=== PATIENT | male | born 1945 | race Caucasian/White ===

== ENCOUNTER 2019-07-21 12:10 | Observation (INO) | payer MEDICARE, SELFPAY ==
[2019-07-21] VITALS (16 sets, daily range): BP systolic 119–160; BP diastolic 63–78; PULSE 76–113; RESP 14–20; TEMP 36.5–36.9; O2SAT 96–99; BMI 23.6
--- NOTE | 2019-07-21 12:41 | W.ED.EPISTAX ---
HPI - Epistaxis General: Chief complaint: Epistaxis Stated complaint: BLOODY NOSE Time Seen by Provider: 07/21/19 12:35 Source: patient Mode of arrival: ambulatory Limitations: no limitations History of Present Illness: HPI Narrative: 73-year-old male who states he has had episodic nosebleeds for last 2 days. Patient states that he had a nosebleed this morning and went to [facility] and was sent here. Patient's nosebleed is since stopped. He is not on any blood thinners. He denies any injuries or pain. MD complaint: epistaxis Location: left nostril Onset (ago): hour(s) Associated symptoms: Deny fever(s), headache(s) or vomiting Review of Systems Const: Denies: fever, chills, body aches or change in appetite Eyes: Denies: blurry vision or eye discomfort ENMT: Reports: nose bleeds Card: Denies: chest pain Resp: Denies: shortness of breath GI: Denies: abdominal pain, nausea, vomiting or diarrhea : Denies: painful urination Musc: Denies: neck pain or back pain Skin/Breast: Denies: rash Neuro: Denies: headache Psych: Denies: depression Chente/Lymph: Denies: easy bruising All/Imm: Denies: hives PFSH ED PFSH: Social History Smoking and tobacco status: never smoked Physical Exam Const: COMMON NORMALS: no apparent distress, oriented x3 and healthy appearing HENMT: COMMON NORMALS: normocephalic and head/scalp atraumatic HEAD & SCALP: normocephalic and atraumatic OTHER: dried blood to left nare Eye: COMMON NORMALS: PERRL and EOMs intact bilaterally PUPIL: Yes PERRL Neck/C-Spine: COMMON NORMALS: full ROM and supple Chest: COMMONS NORMALS: inspection of chest normal and palpation of chest normal Resp: COMMON NORMALS: normal respiratory effort, no retractions, no use of accessory muscles and clear to auscultation bilaterally AUSCULTATION: clear to auscultation bilaterally Cardio: COMMON NORMALS: regular rate, regular rhythm and no murmurs RATE: regular rate RHYTHM: regular rhythm GI: COMMON NORMALS: normal to inspection, nondistended, normoactive bowel sounds, soft to palpation, non-tender and no masses PALPATION: Yes soft Extremity: COMMON NORMALS: normal to inspection and full ROM Neuro: COMMON NORMALS: oriented x3, moves all extremities and no focal motor deficits Psych: COMMON NORMALS: mental status grossly normal, thought process normal and cooperative THOUGHT PROCESS: normal thought process Skin: COMMON NORMALS: no rashes or lesions noted and no wounds GENERAL SKIN EXAM: no rashes or lesions noted Course Vital Signs: Vital signs: Vital Signs Temperature 98.3 F 07/21/19 12:26 Pulse Rate 106 H 07/21/19 12:26 Respiratory Rate 18 07/21/19 12:26 Blood Pressure 126/66 07/21/19 12:26 Pulse Oximetry 98 07/21/19 12:26 MDM - Epistaxis MDM Narrative: Medical decision making narrative: Patient presents here with nosebleed likely causing anemia. Patient's hemoglobin here is 7.6 and last one saw was around 11. Will admit to trend hemoglobin and will transfuse. Lab Data: Labs: Lab Results 07/21/19 Range/Units 12:15 WBC 9.9 (4.0-10.0) 10^3/ uL RBC 2.60 L (4.1-5.3) 10^6/u L Hgb 7.6 L (11.7-16.6) g/dL Hct 24.8 L (42.0-52.0) % MCV 95.4 H (80-94) fL MCH 29.2 (28.0-34.0) pg MCHC 30.6 (30.0-36.0) g/dL RDW 18.0 H (12.1-15.1) % Plt Count 125 L (130-400) 10^3/c mm MPV 9.9 (7.4-10.4) fL Nucleated RBC % (a uto) 0 % Total Counted 100 (0-100) Atypical Lymphs % 2.0 (0-5) % Segmented Neutroph ils 42 % Absolute Lymphocyt es 5.0 H (1.2-3.4) 10^3/c mm Lymphocytes (Manua l) 49 % Monocytes (Manual) 2.0 % Absolute Monocytes 0.2 (0.1-0.6) 10^3/c mm Eosinophils (Manua l) 5 % Absolute Eosinophi ls 0.4 (0.0-0.7) 10^3/c mm Nucleated RBCs # 0.0 /100WBC Platelet Estimate Decreased (Normal) Discharge Plan Discharge Patient Disposition: Admitted As Inpatient Clinical Impression: Epistaxis Anemia Qualifiers: Anemia type: unspecified type Qualified Code(s): D64.9 - Anemia, unspecified Condition: Stable Referrals: Orlando Nevarez FNP [Family Provider] - Coding Level of Care Code ED Oracle Manager for Chg Fwd Exam Comprehensive
[2019-07-21 12:49] LABS: Hematocrit 24.8 % (42.0-52.0); Hemoglobin 7.6 g/dL (11.7-16.6); Mean Corpuscular HGB Conc 30.6 g/dL (30.0-36.0); Mean Corpuscular Hemoglobin 29.2 pg (28.0-34.0); Mean Corpuscular Volume 95.4 fL (80-94); Mean Platelet Volume 9.9 fL (7.4-10.4); Nucleated Red Blood Cells % 0 %; Platelet Count 125 10^3/cmm (130-400); White Blood Count 9.9 10^3/uL (4.0-10.0)
[2019-07-21 13:19] LABS: Slide Review Slide Review Perform
[2019-07-21 13:21] LABS: Total Cells Counted 100 (0-100)
[2019-07-21 13:25] LABS: Absolute Eosinophils 0.4 10^3/cmm (0.0-0.7); Absolute Segmented Neutrophil 4.1 10/cmm (1.6-7.1); Eosinophils 5 %; Lymphocytes 49 %; Monocytes Absolute 0.2 10^3/cmm (0.1-0.6); Platelet Estimate Decreased (Normal); Segmented Neutrophils 42 %
--- NOTE | 2019-07-21 16:30 | P.HP_ITS ---
Providers/Chief Complaint Admitting Physician: Dustin Hardy MD Primary Care Provider: Orlando Nevarez Chief Complaint: EPISTAXIS,ANEMIA History of Present Illness Johann Schuler is a 73 year old male with no significant past medical history presented to the ER today with complaining of feeling weak. Patient also endorsed having epistaxis ongoing for last 3 days. Patient stated till today morning epistaxis was intermittent, he thought it was bilateral associated with of spitting of blood. Today morning epistaxis associated with clot so he presented to the ER. While in the ER patient did not have any further epistaxis. Patient denies of having any hematemesis, melena, constipation, hematochezia, bleeding from anywhere else, easy bruising, history of easy bruising, chest pain, headache, postnasal drip, nausea, vomiting, weakness, dizziness, palpitations, difficulty in breathing. In the ER patient was found to have a hemoglobin of 7.6 so 1 unit of PRBC was already ordered and hospitalist service was requested for admission. Review of Systems Const: Denies: fever, chills, body aches, change in appetite, malaise, night sweats, diaphoresis, change in sleep pattern, daytime sleepiness or snoring Eyes: Denies: change in vision, blurry vision, photophobia, eye discomfort or eye discharge ENMT: Denies: throat pain, enlarged tonsils, hoarseness, mouth pain, oral sores/lesions, dry mouth, tinnitus, nasal congestion or post nasal drip Card: Denies: chest pain, palpitations, irregular heart rhythm, edema, swelling of feet/ankles, lightheadedness, syncope, pre-syncope, shortness of breath on exertion, shortness of breath when lying down, leg pain with exertion or bluish discoloration of hands/feet Resp: Denies: shortness of breath, productive cough, non-productive cough, wheezing, stridor, pain on inspiration, change in phlegm color, coughing up blood or chest congestion GI: Denies: abdominal pain, nausea, vomiting, vomiting blood, coffee grounds in vomit, difficulty swallowing, heartburn/indigestion, diarrhea, constipation, bloating, cramping, change in bowel habits, painful bowel movements, blood in stool or black tarry stool : Denies: flank pain, difficulty urinating, painful urination, urinary frequency, urinary urgency, urinary hesitancy, urinary dribbling, difficulty starting urination, change in urine stream, nighttime urination or blood in urine Musc: Denies: neck pain, back pain, extremity pain, joint pain, joint swelling, redness, joint stiffness or limited range of motion Neuro: Denies: headache, numbness in extremities, weakness in extremities, changes in sensation, lack of coordination, difficulty walking, frequent falls, dizziness, vertigo, confusion, slurred speech, difficulty communicating thoughts or seizure-like activity Psych: Denies: anxiety, depression, mood swings, panic attacks, hopelessness or irritability Endo: Denies: excessive urination, excessive thirst, tired all the time, cold intolerance, excessive sweating, flushing or heat intolerance Chente/Lymph: Denies: easy bruising or easy bleeding All/Imm: Denies: tongue swelling, facial swelling or acute wheezing Medications/Allergies Home Medications Medication Instructions Recorded Confirmed Last Taken Type Vitamin C 1 tab PO DAILY 07/21/19 07/21/19 07/20/19 History acetaminophen [Tylenol Extra 1,000 mg PO Q8H PRN 07/21/19 07/21/19 07/21/19 03:00 History Strength] calcium carbonate-vitamin D3 1 tab PO DAILY 07/21/19 07/21/19 07/20/19 History [Calcium 500 + D] multivitamin [Multiple Vitamins] 1 tab PO DAILY 07/21/19 07/21/19 07/20/19 History Allergies Allergy/AdvReac Type Severity Reaction Status Date / Time aspirin Allergy ADR-Nausea Verified 07/21/19 12:31 PFSH Acute PFSH: Medical History (Updated 07/21/19 @ 16:34 by Dustin Hardy MD) BPH (benign prostatic hyperplasia) Hematuria Iron deficiency anemia Lumbar compression fracture Surgical History (Updated 07/21/19 @ 16:34 by Dustin Hardy MD) H/O inguinal hernia repair Family History (Updated 07/21/19 @ 16:35 by Dustin Hardy MD) Other CAD (coronary artery disease) Cancer Social History (Updated 07/21/19 @ 16:35 by Dustin Hardy MD) Smoking and tobacco status: never smoked Alcohol intake: current Alcohol intake frequency: few times a month Marital status: Vitals/I&O/Wt Last Vital Signs Temp 98.3 F 07/21/19 12:26 Pulse 90 07/21/19 15:50 Resp 17 07/21/19 15:50 BP 134/63 07/21/19 15:50 Pulse Ox 99 07/21/19 15:50 Weight last 48 hrs Weight 72.575 kg Physical Exam Narrative: EXAM NARRATIVE: Vitals noted. General: No acute distress, AO x3 HEENT: PERRLA, pupils bilaterally equal and reactive, no current epistaxis Chest: Normal vesicular breath sounds, no added sounds, equal good air entry bilaterally CVS: S1-S2 regular, no murmurs, no tachycardia, no gallops, no rubs Abdomen: Soft, nontender, no organomegaly, bowel sounds present Neuro: No focal deficits, no facial deformity, AO x3, power 5/5 in all limbs Data : 07/21/19 12:15 A&P Assessment and plan (1) Epistaxis: Status: Acute (2) Anemia: Status: Acute Qualifiers: Anemia type: unspecified type Qualified Code(s): D64.9 - Anemia, unspecified (3) Iron deficiency anemia: Status: Acute Additional A&P Information Epistaxis: No current epistaxis at present. Continue with Afrin as an ER. Check PT/INR, CMP Anemia: H/o ELISABETH. Mild thrombocytopenia present on CBC. Check TIBC, Vit B12, Folate. Already ordered 1 unit of PRBC by the ER. Will give. Check CBC tomorrow morning. Peripheral smear due to thrombocytopenia. General health: Check TSH, lipid panel, HbA1c. Monitor blood pressure. Full code. Regular diet. Low chances of DVT. We will hold off on any VTE. Attestations Medical Necessity Statement*: Less than 2 midnights for anemia Time Spent in Patient Care: Greater than 35 minutes Coding Level of Care Code Acute Couture Alterations Dressmaker for Chg Fwd Diagnoses Epistaxis R04.0 Anemia D64.9 Anemia type: unspecified type Iron deficiency anemia D50.9
[2019-07-21 18:08] LABS: INR 1.16 (0.8-1.2)
[2019-07-21 18:48] LABS: Alanine Aminotransferase 24 U/L (0-41); Albumin Level 3.7 g/dL (3.5-5.2); Alkaline Phosphatase 147 IU/L (40-130); Anion Gap 19.1 (5-19); Aspartate Amino Transferase 27 U/L (0-40); Blood Urea Nitrogen 48 mg/dL (8-23); Calcium 10.5 mg/dL (8.5-10.5); Carbon Dioxide 18 mmol/L (22-29); Chloride 104 mmol/L (98-107); Globulin 7.7 g/dL (1.3-4.6); Glucose 109 mg/dL (65-115); Osmolality Calculated 283 mOsm/kg (285-295); Potassium 4.1 mmol/L (3.5-5.1); Sodium 137 mmol/L (136-145); Thyroid Stimulating Hormone 2.16 uIU/mL (0.27-4.20); Total Bilirubin 0.7 mg/dL (0.15-1.2); Total Protein 11.4 g/dL (6.6-8.7)
[2019-07-21 19:49] LABS: Iron 86 ug/dL (59-158); Percent Saturation 36.4 % (20-50); Total Iron Binding Capacity 236 mcg/dl; Unsaturated Iron Binding 150 ug/dL (112-347)
[2019-07-21] MEDS: sodium chloride 0.9% (100 ml) 100 ML 125 ML (19:50)
[2019-07-21] MEDS: ipratropium-albuterol 3 mL Neb INHALATION (20:46)
[2019-07-21 22:18] LABS: Amphetamines Screen Urine Negative (Negative); Barbiturates Screen Urine Negative (Negative); Benzodiazepines Screen Urine Negative (Negative); Cocaine Screen Urine Negative (Negative); Opiate Screen Urine Negative (Negative); PCP Screen Urine Negative (Negative); THC Screen Urine Negative (Negative)
[2019-07-21 22:25] LABS: Creatinine Urine, Random 62 mg/dL (39-259); Microalbumin Random Urine 5 ug/dL (0-20)
[2019-07-21 22:30] LABS: Microalbum Creatinine Ratio Ur 81 mg/dL (0-20)
[2019-07-21] MEDS: acetaminophen 325 mg Tablet 650 MG PO (22:48)
[2019-07-22] VITALS (8 sets, daily range): BP systolic 119–145; BP diastolic 61–78; PULSE 76–91; RESP 18–22; TEMP 36.6–36.9; O2SAT 96–99
[2019-07-22] MEDS: sodium chloride 0.9% (100 ml) 100 ML 125 ML (00:51)
[2019-07-22 01:46] LABS: Calcium 9.9 mg/dL (8.5-10.5); Parathyroid Hormone 11.9 pg/mL (15-65)
[2019-07-22 05:58] LABS: Basophils % 0.4 %; Eosinophils # 0.2 10^3/uL (0.0-0.8); Eosinophils % 2.8 %; Hematocrit 27.2 % (42.0-52.0); Hemoglobin 8.8 g/dL (11.7-16.6); Lymphocytes # 3.2 10^3/uL (0.8-4.8); Mean Corpuscular HGB Conc 32.4 g/dL (30.0-36.0); Mean Corpuscular Hemoglobin 30.4 pg (28.0-34.0); Mean Corpuscular Volume 94.1 fL (80-94); Mean Platelet Volume 10.3 fL (7.4-10.4); Monocytes # 0.9 10^3/uL (0.2-0.9); Monocytes % 10.9 %; Neutrophils # 3.2 10^3/uL (1.8-7.7); Nucleated Red Blood Cells % 0.3 %; Platelet Count 106 10^3/cmm (130-400); Red Blood Count 2.89 10^6/uL (4.1-5.3); Red Cell Distribution Width 17.4 % (12.1-15.1); White Blood Count 7.9 10^3/uL (4.0-10.0)
[2019-07-22 06:21] LABS: Alanine Aminotransferase 21 U/L (0-41); Albumin Level 3.5 g/dL (3.5-5.2); Alkaline Phosphatase 138 IU/L (40-130); Anion Gap 18.2 (5-19); Aspartate Amino Transferase 27 U/L (0-40); Blood Urea Nitrogen 51 mg/dL (8-23); Calcium 10.4 mg/dL (8.5-10.5); Carbon Dioxide 17 mmol/L (22-29); Chloride 106 mmol/L (98-107); Globulin 7.5 g/dL (1.3-4.6); Glucose 111 mg/dL (65-115); Osmolality Calculated 283 mOsm/kg (285-295); Potassium 4.2 mmol/L (3.5-5.1); Sodium 137 mmol/L (136-145); Total Bilirubin 1.4 mg/dL (0.15-1.2)
[2019-07-22 06:22] LABS: Chol HDL Ratio 5.05 mg/dL (1.0-5.00); Cholesterol 96 mg/dL (0-200); HDL Cholesterol 19 mg/dL (60-100); LDL Cholesterol Calculated 51 mg/dL (50-129); LDL HDL Ratio 2.68 RATIO (0.00-3.22); Triglycerides 130 mg/dL (0-150)
[2019-07-22 06:38] LABS: Eosinophil Urine No Eosinophils Seen; Urine Eosinophil Count 0 (0-0)
[2019-07-22] MEDS: acetaminophen 325 mg Tablet 650 MG PO (06:47)
[2019-07-22 07:02] LABS: LAB Peripheral Smear Sent for Review
[2019-07-22 07:55] LABS: Neutrophils % 45.9 %; Slide Review Slide Review Perform
[2019-07-22 08:28] LABS: Potassium, Radom Urine 30 mmol/L; Urine Creatinine 63 mg/dL (39-259); Urine Random Chloride 43 mmol/L; Urine Random Sodium 56 mmol/L
[2019-07-22 08:37] LABS: Estmated Average Glucose 120; Hemoglobin A1C 5.8 % (4.0-6.0)
--- NOTE | 2019-07-22 11:16 | PM.DCS ---
Discharge Providers Date of Admission: 07/21/19 13:35 Date of Discharge: July 22, 2019 Attending Provider at Admission: Dustin Hardy MD Attending Provider at Discharge: Dustin Hardy MD Primary Care Provider: Orlando Nevarez Diagnoses at Discharge Discharge Diagnosis (1) Epistaxis: Status: Acute (2) Anemia: Status: Acute Qualifiers: Anemia type: unspecified type Qualified Code(s): D64.9 - Anemia, unspecified (3) Iron deficiency anemia: Status: Acute (4) CKD (chronic kidney disease): Status: Acute Reason for Visit Reason for Visit: Reason For Visit: EPISTAXIS,ANEMIA Hospital Course Discharge Summary: Johann Schuler is a 73 year old male with no significant past medical history presented to the ER today with complaining of feeling weak. Patient also endorsed having epistaxis ongoing for last 3 days. Patient stated till today morning epistaxis was intermittent, he thought it was bilateral associated with of spitting of blood. Today morning epistaxis associated with clot so he presented to the ER. While in the ER patient did not have any further epistaxis. Patient denies of having any hematemesis, melena, constipation, hematochezia, bleeding from anywhere else, easy bruising, history of easy bruising, chest pain, headache, postnasal drip, nausea, vomiting, weakness, dizziness, palpitations, difficulty in breathing. In the ER patient was found to have a hemoglobin of 7.6 so 1 unit of PRBC was already ordered and hospitalist service was requested for admission. Patient did not have any further epistaxis and and received 1 unit of PRBC which responded appropriately. His blood work later revealed him being in CKD with creatinine of 3 though we do not have any baseline creatinine for him. His urine studies were done and Fena came back to be 1.9 which is consistent with intrinsic cause. His TSH, lipid panel, HbA1c were all within normal limits. On further interview with the patient patient stated that he has been having thousand milligrams of extended release Tylenol 3 times a day for last 2 years. 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 Patient was counseled in detail regarding need of less NSAID to prevent him from further kidney disorder. Patient was found to be iron deficient and is been discharged in hemodynamically stable condition on oral iron supplementation, sodium bicarbonate tablets with advised to follow-up with his primary care provider within next 2 weeks and to follow-up with Dr. Quezada from nephrology within next 2 weeks. Physical Exam Narrative: EXAM NARRATIVE: Vitals noted. General: No acute distress, AO x3 HEENT: PERRLA, pupils bilaterally equal and reactive, no current epistaxis Chest: Normal vesicular breath sounds, no added sounds, equal good air entry bilaterally CVS: S1-S2 regular, no murmurs, no tachycardia, no gallops, no rubs Abdomen: Soft, nontender, no organomegaly, bowel sounds present Neuro: No focal deficits, no facial deformity, AO x3, power 5/5 in all limbs Discharge Data Data Completed and Pending: Pending at discharge Category Date Time Status Urine Protein Torie ctrop Random Stat Lab 07/21/19 21:00 Received US renal BI* [id number] Routine Ultrasound 07/22/19 18:54 Taken Labs from last 24 hours 07/22/19 07/22/19 07/22/19 05:02 05:02 05:02 WBC RBC Hgb Hct MCV MCH MCHC RDW Plt Count MPV Neut % (Auto) Lymph % (Auto) Caldwell % (Auto) Eos % (Auto) Baso % (Auto) Neut # (Auto) Lymph # (Auto) Caldwell # (Auto) Eos # (Auto) Baso # (Auto) Nucleated RBC % (a uto) Total Counted Atypical Lymphs % Segmented Neutroph ils Absolute Lymphocyt es Lymphocytes (Manua l) Monocytes (Manual) Absolute Monocytes Eosinophils (Manua l) Absolute Eosinophi ls Nucleated RBCs # Platelet Estimate PT INR Sodium 137 Potassium 4.2 Chloride 106 Carbon Dioxide 17 L Anion Gap 18.2 BUN 51 H Creatinine 2.9 H Glucose 111 Estimat Average Gl ucose 120 Hemoglobin A1c 5.8 Calculated Osmolal ity 283 L Calcium 10.4 Iron TIBC % Saturation Unsat Iron Binding Total Bilirubin 1.4 H AST 27 ALT 21 Alkaline Phosphata se 138 H Total Protein 11.0 H Albumin 3.5 Globulin 7.5 H Triglycerides 130 Cholesterol 96 LDL Cholesterol, C alc 51 HDL Cholesterol 19 L LDL/HDL Ratio 2.68 Cholesterol/HDL Ra bill 5.05 H TSH PTH Intact Calcium (PTH Intac t) Ur Eosinophil Smea r Urine Eosinophils Ur Random Microalb umin Ur Random Sodium Ur Random Potassiu m Ur Random Chloride Urine Creatinine Microalb/Creat Rat io Urine Opiates Scre en Ur Barbiturates Sc reen Ur Phencyclidine S crn Ur Amphetamines Sc reen U Benzodiazepines Scrn Urine Cocaine Scre en U Marijuana (THC) Screen Blood Type Rho(D) Type Antibody Screen Crossmatch 07/22/19 07/21/19 07/21/19 05:02 21:00 21:00 WBC 7.9 RBC 2.89 L Hgb 8.8 L Hct 27.2 L MCV 94.1 H MCH 30.4 MCHC 32.4 D RDW 17.4 H Plt Count 106 L MPV 10.3 Neut % (Auto) 45.9 Lymph % (Auto) 40.0 Caldwell % (Auto) 10.9 Eos % (Auto) 2.8 Baso % (Auto) 0.4 Neut # (Auto) 3.2 Lymph # (Auto) 3.2 Caldwell # (Auto) 0.9 Eos # (Auto) 0.2 Baso # (Auto) 0.0 Nucleated RBC % (a uto) 0.3 Total Counted Atypical Lymphs % Segmented Neutroph ils Absolute Lymphocyt es Lymphocytes (Manua l) Monocytes (Manual) Absolute Monocytes Eosinophils (Manua l) Absolute Eosinophi ls Nucleated RBCs # 0.0 Platelet Estimate PT INR Sodium Potassium Chloride Carbon Dioxide Anion Gap BUN Creatinine Glucose Estimat Average Gl ucose Hemoglobin A1c Calculated Osmolal ity Calcium Iron TIBC % Saturation Unsat Iron Binding Total Bilirubin AST ALT Alkaline Phosphata se Total Protein Albumin Globulin Triglycerides Cholesterol LDL Cholesterol, C alc HDL Cholesterol LDL/HDL Ratio Cholesterol/HDL Ra bill TSH PTH Intact Calcium (PTH Intac t) Ur Eosinophil Smea r 0 Urine Eosinophils No eosinophils se en Ur Random Microalb umin 5 Ur Random Sodium 56 Ur Random Potassiu m 30 Ur Random Chloride 43 Urine Creatinine 63 62 Microalb/Creat Rat io 81 H Urine Opiates Scre en Negative Ur Barbiturates Sc reen Negative Ur Phencyclidine S crn Negative Ur Amphetamines Sc reen Negative U Benzodiazepines Scrn Negative Urine Cocaine Scre en Negative U Marijuana (THC) Screen Negative Blood Type Rho(D) Type Antibody Screen Crossmatch 07/21/19 07/21/19 07/21/19 20:05 17:26 17:26 WBC RBC Hgb Hct MCV MCH MCHC RDW Plt Count MPV Neut % (Auto) Lymph % (Auto) Caldwell % (Auto) Eos % (Auto) Baso % (Auto) Neut # (Auto) Lymph # (Auto) Caldwell # (Auto) Eos # (Auto) Baso # (Auto) Nucleated RBC % (a uto) Total Counted Atypical Lymphs % Segmented Neutroph ils Absolute Lymphocyt es Lymphocytes (Manua l) Monocytes (Manual) Absolute Monocytes Eosinophils (Manua l) Absolute Eosinophi ls Nucleated RBCs # Platelet Estimate PT 15.20 H INR 1.16 Sodium 137 Potassium 4.1 Chloride 104 Carbon Dioxide 18 L Anion Gap 19.1 H BUN 48 H Creatinine 3.0 H Glucose 109 Estimat Average Gl ucose Hemoglobin A1c Calculated Osmolal ity 283 L Calcium 10.5 Iron 86 TIBC 236 % Saturation 36.4 Unsat Iron Binding 150 Total Bilirubin 0.7 AST 27 ALT 24 Alkaline Phosphata se 147 H Total Protein 11.4 H Albumin 3.7 Globulin 7.7 H Triglycerides Cholesterol LDL Cholesterol, C alc HDL Cholesterol LDL/HDL Ratio Cholesterol/HDL Ra bill TSH 2.16 PTH Intact 11.9 L Calcium (PTH Intac t) 9.9 Ur Eosinophil Smea r Urine Eosinophils Ur Random Microalb umin Ur Random Sodium Ur Random Potassiu m Ur Random Chloride Urine Creatinine Microalb/Creat Rat io Urine Opiates Scre en Ur Barbiturates Sc reen Ur Phencyclidine S crn Ur Amphetamines Sc reen U Benzodiazepines Scrn Urine Cocaine Scre en U Marijuana (THC) Screen Blood Type Rho(D) Type Antibody Screen Crossmatch 07/21/19 07/21/19 13:56 12:15 WBC 9.9 RBC 2.60 L Hgb 7.6 L Hct 24.8 L MCV 95.4 H MCH 29.2 MCHC 30.6 RDW 18.0 H Plt Count 125 L MPV 9.9 Neut % (Auto) Lymph % (Auto) Caldwell % (Auto) Eos % (Auto) Baso % (Auto) Neut # (Auto) Lymph # (Auto) Caldwell # (Auto) Eos # (Auto) Baso # (Auto) Nucleated RBC % (a uto) 0 Total Counted 100 Atypical Lymphs % 2.0 Segmented Neutroph ils 42 Absolute Lymphocyt es 5.0 H Lymphocytes (Manua l) 49 Monocytes (Manual) 2.0 Absolute Monocytes 0.2 Eosinophils (Manua l) 5 Absolute Eosinophi ls 0.4 Nucleated RBCs # 0.0 Platelet Estimate Decreased PT INR Sodium Potassium Chloride Carbon Dioxide Anion Gap BUN Creatinine Glucose Estimat Average Gl ucose Hemoglobin A1c Calculated Osmolal ity Calcium Iron TIBC % Saturation Unsat Iron Binding Total Bilirubin AST ALT Alkaline Phosphata se Total Protein Albumin Globulin Triglycerides Cholesterol LDL Cholesterol, C alc HDL Cholesterol LDL/HDL Ratio Cholesterol/HDL Ra bill TSH PTH Intact Calcium (PTH Intac t) Ur Eosinophil Smea r Urine Eosinophils Ur Random Microalb umin Ur Random Sodium Ur Random Potassiu m Ur Random Chloride Urine Creatinine Microalb/Creat Rat io Urine Opiates Scre en Ur Barbiturates Sc reen Ur Phencyclidine S crn Ur Amphetamines Sc reen U Benzodiazepines Scrn Urine Cocaine Scre en U Marijuana (THC) Screen Blood Type B Negative Rho(D) Type Negaive Antibody Screen Negative Crossmatch See Detail Vitals: Last Vital Signs Temp 98.3 F 07/22/19 11:08 Pulse 76 07/22/19 11:08 Resp 22 H 07/22/19 11:08 BP 132/78 07/22/19 11:08 Pulse Ox 99 07/22/19 11:08 Discharge Plan Discharge Patient Disposition: Home, Self-Care Condition: Stable Prescriptions: New Auryxia 210 mg iron tablet 210 mg PO BID Qty: 60 RF: 0 sodium bicarbonate 325 mg tablet 325 mg PO DAILY Qty: 30 RF: 0 Continued Multiple Vitamins Tablet 1 tab PO DAILY RF: 0 Calcium 500 + D 500 mg(1,250mg) -200 unit Tablet 1 tab PO DAILY RF: 0 Vitamin C 1 tab PO DAILY RF: 0 Changed Tylenol Extra Strength 500 mg Tablet 1,000 mg PO DAILY PRN (Reason: Pain) Qty: 0 RF: 0 Discharge Orders: Discharge Order (Routine); Ordered 07/22/19 Ordered By: Dustin Hardy Referrals: Laci Quezada MD [Referring] - 2 weeks (Please call Wednesday to make an appointment. 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 [phone]) Discharge Diet: Cardiac and Low Salt Discharge Activity: Resume usual activity Patient Instructions: Iron Supplements (By mouth), Sodium Bicarbonate (By mouth), Epistaxis (GEN) Discharge Attestations Time Spent in Discharge Care*: greater than 30 min Specific Discharge Activities: Specific discharge activities: educating patient, educating and/or supporting family/caregiver, discussing with spring encaser/social workers/dc planners, documenting/other paperwork and evaluating patient/reviewing data Status at Discharge: Cognitive status at discharge: cognitively intact, Behavioral status at discharge: cooperative, Functional status at discharge: independent ambulation Overall status at discharge: patient is back to baseline Quality Metrics Clinical Quality Measures During this hospital stay, did patient experience: None Coding Level of Care Code Acute Industrial Sales Engineer for Chg Fwd Diagnoses Epistaxis R04.0 Anemia D64.9 Anemia type: unspecified type Iron deficiency anemia D50.9 CKD (chronic kidney disease) N18.9
--- NOTE | 2019-07-22 18:54 | USR_ITS ---
PROCEDURE INFORMATION: Exam: US Retroperitoneal Complete. Exam date and time: 07/22/2019 8:41 AM Age: 73 years old Clinical indication: Abnormal findings; Abnormal lab test; Abnormal kidney function lab tests; Additional info: Ckd TECHNIQUE: Imaging protocol: Real-time ultrasound of the retroperitoneum with image documentation. Complete exam. COMPARISON: CT Abdomen/Pelvis Renal [id number] 09/10/2017 12:36 PM FINDINGS: Right kidney: Right kidney measures 11.0 cm in length. No renal mass, calculus, or hydronephrosis. Left kidney: Left kidney measures 11.4 cm in length. No renal mass, calculus, or hydronephrosis. Aorta: Obscuration of the abdominal aorta by bowel gas. Bladder: Poorly visualized enlarged prostate producing extrinsic compression of the bladder base. Wall thickening in the nondistended bladder. US/US renal BI* [id number] IMPRESSION: 1. No acute sonographic abnormality in the visualized kidneys and upper collecting systems. 2. Poorly visualized enlarged prostate produces extrinsic compression of the bladder base.
--- NOTE | 2019-07-24 14:42 | PC.SOCIAL ---
Notified Dr Hardy the pharmacy does not carry the Ferrous Citrate. He recommends Ferrous Gluconate. He is agreeable and changed order to 324mg twice daily of the ferrous gluconate. updated pharmacy.
--- NOTE | 2019-07-24 14:52 | PC.SOCIAL ---
Tried to call patient back to update him on the medication concern at pharmacy. He was not available left message requesting a return call.
[2019-07-24 16:12] LABS: Creatinine, Random Urine 55 mg/dL (20-320); Protein, Total, Random 43 mg/dL (5-25); Protein/Creatinine Ratio 0.782 (0.022-0.128); Protein/Creatinine Ratio 782 mg/g creat (22-128)
[2019-07-25 12:57] LABS: Albumin,Urine Random 35 %; Alpha-1-Globulins Urine Random 7 %; Alpha-2-Globulins Urine Random 19 %; Beta-Globulin,Urine Random 25 %; Gamma Globulin,Urine Random 13 %
== END 2019-07-22 13:00 | disposition home or self-care (01) ==
LOC: ER 13:41 → MEDSURG 14:43
PROVIDERS: Admitting Provider Student in an Organized Health Care Education/Training Program; Emergency Provider Emergency Medicine; Family Provider Nurse Practitioner Family; PCP Nurse Practitioner Family; Visit Provider Student in an Organized Health Care Education/Training Program
DX: R04.0 Epistaxis (principal); D50.9 Iron deficiency anemia, unspecified; N40.0 Benign prostatic hyperplasia without lower urinary tract symptoms; Z82.49 Family history of ischemic heart disease and other diseases of the circulatory system; N18.9 Chronic kidney disease, unspecified
CPT/HCPCS: 12345; 36415; 36430; 76770; 80053; 80061; 80306; 80500; 82044; 82310; 82436; 82570; 83036; 83540; 83550; 83970; 84133; 84300; 84443; 85007; 85025; 85610; 85999; 86850; 86900; 86920; 94640; 96360; 99282; 99285; G0378; P9016